=== PATIENT | female | born 1965 | race Hispanic/Latino ===

== ENCOUNTER 2020-09-21 13:39 | Outpatient (CLI) | payer OTHER ==
--- NOTE | 2020-09-21 14:32 | Mammography Report ---
DIGITAL SCREENING MAMMOGRAM WITH CAD, 09/21/2020 CLINICAL INFORMATION / INDICATION: Routine screening mammography. SCREENING MAMMO TECHNIQUE: Digital bilateral 2D mammography was obtained in the craniocaudal and mediolateral obliqu e projections. This examination was interpreted with the benefit of Computer-Aided Detection analysis . COMPARISON: 08/19/2019 and 09/17/2018 FINDINGS: Breast Density: The breasts are heterogeneously dense, which may obscure small masses. No dominant mass, suspicious calcifications, or architectural distortion in either breast. 2 Biopsy clips are again noted in the left breast. IMPRESSION: No mammographic evidence of malignancy. Follow up recommendation: Routine yearly BI-RADS Category 2: Benign. A "normal" or negative report should not discourage follow up or biopsy of a clinically significant f inding. A written summary of these findings will be mailed to the patient. The patient will be entered into a mammography reporting system which will generate a reminder letter for the patient's next appointmen t at the appropriate interval. The [employer] recommends yearly mammograms starting at age 40 and continuing as l ariana as a woman is in good health. Breast MRI is recommended for women with an approximate 20-25% or greater lifetime risk of breast cancer, including women with a strong family history of breast or ova masoud cancer or who have been treated for Hodgkin's disease. Signer Name: Mike Curtis MD Signed: 09/21/2020 2:28 PM Workstation Name: [id number]
== END 2020-09-21 13:40 | disposition home or self-care (01) ==
LOC: SPVWC 13:39
PROVIDERS: ATTEND Surgery
DX: Z12.31 Encounter for screening mammogram for malignant neoplasm of breast (principal)
CPT/HCPCS: 77067

== ENCOUNTER 2021-05-16 09:21 | Outpatient (CLI) | payer OTHER ==
--- NOTE | 2021-05-16 11:59 | Magnetic Resonance Report ---
BILATERAL BREAST MRI WITH AND WITHOUT CONTRAST CLINICAL INFORMATION/INDICATION: 55-year-old female with remote history of abnormal left mammogram. P ingris has family history of ovarian cancer TECHNICAL: Coronal STIR, axial T1 and T2-weighted fat sat images were obtained precontrast. cc Dotare m contrast was injected intravenously and serial axial T1 weighted images with fat saturation were ob tained. 3-D MIP projections, kinetic analysis and subtraction imaging was utilized to evaluate. A ded icated 8-channel breast coil was used for image acquisition. COMPARISON: FINDINGS: Breast Density: Background Parenchymal Enhancement: Minimal Right breast: No mass, suspicious focus of enhancement or lymphadenopathy. Left breast: In the deep retroareolar region, there is a small enhancing oval mass measuring approxim ately 8 mm in diameter. This mass is located 2.3 cm from the chest wall and 6.5 cm deep to the nipple . Additionally, there is an oval mass with mild rim enhancement in the upper outer quadrant measuring 11 x 9 mm. This mass is located at 2:00, posterior depth just slightly lateral to the above-mentione d smaller mass in the deep retroareolar breast. This rim enhancing oval mass is approximately 2.7 fro m the chest wall and 6.5 cm from nipple. There are 2 biopsy clips in the left breast, neither of whic h correspond to either one of these enhancing masses. There are a few slightly prominent left axillar y lymph nodes present. Additional findings: None. IMPRESSION: 1. There are 2 abnormal masses in the left breast, as outlined above. There is a 11 mm oval rim enhan cing mass in the 2:00 position and an adjacent 8 mm oval mass in the deep retroareolar breast. Left b reast ultrasound is recommended in attempt to find sonographic correlates for both of these masses, w ith biopsy performed, if found. 2. Prominent left axillary lymph nodes. Left axillary ultrasound is recommended.. 3. Normal MRI of the right breast. Follow up recommendation: Left breast and axillary ultrasound with biopsies performed. BI-RADS Category 0: Incomplete. Needs additional imaging evaluation and/or prior mammograms for smiley rison. Signer Name: Juanita Osorio MD Signed: 05/16/2021 11:55 AM Workstation Name: [id number]
== END 2021-05-16 09:22 | disposition home or self-care (01) ==
LOC: SPVIMAG 09:21
PROVIDERS: ATTEND Surgery
DX: N63.21 Unspecified lump in the left breast, upper outer quadrant (principal); R92.8 Other abnormal and inconclusive findings on diagnostic imaging of breast; Z80.41 Family history of malignant neoplasm of ovary; D24.2 Benign neoplasm of left breast
CPT/HCPCS: A9575; C8908; 77049

== ENCOUNTER 2021-06-06 09:24 | Outpatient (CLI) | payer OTHER ==
--- NOTE | 2021-06-06 12:34 | Ultrasound Report ---
ULTRASOUND GUIDED LEFT BREAST BIOPSY, 06/06/2021 CLINICAL INFORMATION / INDICATION: Patient presents for further evaluation of areas of abnormal enhan cement in the left breast seen on recent MRI, as well as prominent left axillary lymph nodes. COMPARISON: Breast MRI 05/16/2021 PROCEDURE: First, a limited left breast ultrasound was performed in order to identify the correlate for the area s of abnormal enhancement seen on recent MRI. There is an oval circumscribed hypoechoic mass in the l eft breast 2:00 position located 6 cm from the nipple measuring up to 1.3 x 0.6 x 0.8 cm. The lesion is parallel. No internal vascularity is demonstrated. Additionally, there is an irregular hypoechoic mass in the 2:00 position located 4 cm from the nipple measuring up to 10 x 6 x 8 mm. This lesion dem onstrates posterior shadowing. It is uncertain which of these two lesions accounts for the 2:00 lesio n described on recent MRI, therefore ultrasound-guided biopsy of both sites was performed. Additional ly, there is a 3 mm benign-appearing nodule in the 2:00 position located 4 cm from the nipple which d oes not definitively correspond with the additional small enhancing nodule seen on MRI. Targeted ultr asound of the left axilla reveals several morphologically normal lymph nodes. No suspicious lymphaden opathy identified. Risks, benefits, and indications to the procedure were discussed with the patient in detail, includin g bleeding, infection, hematoma formation, and inadequate tissue sampling. The patient agreed to proc eed with both verbal and written consent. A timeout procedure was performed with two patient identifi ers. The breast was prepped and draped in the usual sterile fashion. Lidocaine 1% with and without epineph rine were used for local anesthesia. Under direct ultrasound guidance, multiple core samples were obt ained of the mass in the 2:00 position located 4 cm from the nipple. A biopsy marker was then placed . Biopsy device was removed and hemostasis achieved with manual pressure. A sterile dressing was appl ied to the skin. Next, the breast was prepped and draped in the usual sterile fashion. Lidocaine 1% with and without e pinephrine were used for local anesthesia. Under direct ultrasound guidance, multiple core samples we re obtained of the mass in the 2:00 position located 6 cm from the nipple. A biopsy marker was then placed. Biopsy device was removed and hemostasis achieved with manual pressure. A sterile dressing wa s applied to the skin. The patient tolerated the procedure without difficulty. No complications were encountered. Postbiopsy instructions were discussed with the patient and given in writing. Specimens were sent to pathology. IMPRESSION: 1. Technically successful ultrasound guided left breast biopsy of two sites. Biopsy results are pending and will be reported in an addendum. Signer Name: Deborah Boyer MD Signed: 06/06/2021 12:30 PM Workstation Name: [id number]
--- NOTE | 2021-06-06 12:40 | Mammography Report ---
DIGITAL DIAGNOSTIC MAMMOGRAM WITH CAD CONVENTIONAL, 06/06/2021 CLINICAL INFORMATION / INDICATION: Postbiopsy mammogram following left breast 2 site ultrasound-guid ed biopsy TECHNIQUE: Digital left mammographic imaging was performed. This examination was interpreted with the benefit of Computer-aided Detection analysis. COMPARISON: Prior mammogram 09/21/2020 and breast MRI 05/16/2021 FINDINGS: Breast Density: The breasts are heterogeneously dense, which may obscure small masses. Postbiopsy mammogram reveals the two new biopsy clips seen immediately adjacent to one another in the 2:00 position of the left breast, middle depth. These are located approximately 1 cm posterior to a remote biopsy clip in the left breast. The 2:00 lesion on MRI was directly posterior to the old biops y clip, so it is felt that these likely correspond with the site of the 2:00 MRI finding. There is an additional remote biopsy clip seen in the posterior upper outer quadrant of the left breast. IMPRESSION: 1. Postbiopsy mammogram as detailed above. Further management decisions will be made pending biopsy r esults and will be dictated in an addendum to the biopsy report. Follow up recommendation: No recall. Post biopsy imaging. A "normal" or negative report should not discourage follow up or biopsy of a clinically significant f inding. A written summary of these findings will be mailed to the patient. The patient will be entered into a mammography reporting system which will generate a reminder letter for the patient's next appointmen t at the appropriate interval. According to the [employer], yearly mammograms are recommended starting at age 40 and continuing as long as a woman is in good health. Breast MRI is recommended for women with an jimmy roximately 20-25% or greater lifetime risk of breast cancer, including women with a strong family his tory of breast or ovarian cancer and women who have been treated for Hodgkin's disease. Signer Name: Deborah Boyer MD Signed: 06/06/2021 12:36 PM Workstation Name: [id number]
== END 2021-06-06 09:25 | disposition home or self-care (01) ==
LOC: SPVWC 09:24
PROVIDERS: ATTEND Surgery
DX: R92.8 Other abnormal and inconclusive findings on diagnostic imaging of breast (principal)
CPT/HCPCS: 88305

== ENCOUNTER 2021-09-14 13:55 | Outpatient (CLI) | payer OTHER ==
--- NOTE | 2021-09-15 16:57 | Mammography Report ---
DIGITAL SCREENING MAMMOGRAM WITH CAD, 09/14/2021 CLINICAL INFORMATION / INDICATION: Routine screening mammography. TECHNIQUE: Digital bilateral 2D mammography was obtained in the craniocaudal and mediolateral obliqu e projections. This examination was interpreted with the benefit of Computer-Aided Detection analysis . COMPARISON: 09/21/2020, 08/19/2019 FINDINGS: Breast Density: The breasts are heterogeneously dense, which may obscure small masses. No dominant mass, suspicious calcifications, or architectural distortion in the right breast. There are 3 biopsy clips in the upper outer quadrant of the left breast. Overall appearance of the le breast parenchyma is stable compared to 2019. IMPRESSION: No mammographic evidence of malignancy. Follow up recommendation: Routine yearly BI-RADS Category 2: Benign. A "normal" or negative report should not discourage follow up or biopsy of a clinically significant f inding. A written summary of these findings will be mailed to the patient. The patient will be entered into a mammography reporting system which will generate a reminder letter for the patient's next appointmen t at the appropriate interval. The [employer] recommends yearly mammograms starting at age 40 and continuing as l ariana as a woman is in good health. Breast MRI is recommended for women with an approximate 20-25% or greater lifetime risk of breast cancer, including women with a strong family history of breast or ova masoud cancer or who have been treated for Hodgkin's disease. Signer Name: Juanita Osorio MD Signed: 09/15/2021 4:53 PM Workstation Name: [id number]
== END 2021-09-14 13:56 | disposition home or self-care (01) ==
LOC: SPVWC 13:55
PROVIDERS: ATTEND Surgery
DX: Z12.31 Encounter for screening mammogram for malignant neoplasm of breast (principal)
CPT/HCPCS: 77067